=== PATIENT | male | born 1970 | race Caucasian/White ===

== ENCOUNTER → 2016-10-27 | Outpatient (CLI) | payer BC | LOC: GMAJ 16:47 | PROVIDERS: ATTEND Family Medicine | DX: E29.1 Testicular hypofunction (principal); E55.9 Vitamin D deficiency, unspecified ==

== ENCOUNTER → 2018-03-23 | Outpatient (CLI) | payer BC, OTHER | LOC: GMAJS 17:01 | PROVIDERS: ATTEND Physician Assistant | DX: I95.1 Orthostatic hypotension (principal); R42 Dizziness and giddiness; I10 Essential (primary) hypertension; Z12.5 Encounter for screening for malignant neoplasm of prostate ==

== ENCOUNTER → 2018-11-08 | Outpatient (CLI) | payer OTHER | LOC: GMAJ 18:21 | PROVIDERS: ATTEND Family Medicine | DX: E29.1 Testicular hypofunction (principal); E55.9 Vitamin D deficiency, unspecified ==

== ENCOUNTER → 2018-11-30 | Outpatient (CLI) | payer OTHER | LOC: GMAJ 17:21 | PROVIDERS: ATTEND Family Medicine | DX: R94.5 Abnormal results of liver function studies (principal) ==

== ENCOUNTER → 2018-12-15 | Outpatient (CLI) | payer OTHER ==
--- NOTE | 2018-12-15 15:38 | US ---
EXAM DESCRIPTION: Abdomen,Complete: Ultrasound. CLINICAL HISTORY: ELEVATED LFT ABNORMAL LIVER FUNCTION STUDIES COMPARISON: None Available. TECHNIQUE: Transabdominal scannin-dimensional and Doppler modes. FINDINGS: Gallbladder: Normal size with no intraluminal stones or sludge. Wall thickness 2.4 mm normal. No surrounding fluid. Nontender with transducer pressure.. Common bile duct: 5.5 mm normal caliber. Liver: Diffuse increased echogenicity. Long axis of the right lobe 16.7 cm. Hepatopedal flow in the portal vein which is normal caliber. Ducts not dilated. Capsule smooth where seen. No ascites. Pancreas: Normal echogenicity of the included segments with duct not seen.. Abdominal aorta: Normal caliber from the proximal segment to the distal bifurcation. IVC: visualized; normal caliber. Spleen normal echogenicity; long axis measurement is 11.1 cm. Right kidney: 11.4 cm long axis with normal cortical thickness and minimally increased echogenicity. Anechoic cyst protruding from the upper cortex measures 4.6 cm. Lower pole medial cortical cyst measures 2.2 cm. Normal vascularity with no hydronephrosis. No perirenal fluid. Left kidney: 11.1 cm long axis with normal cortical thickness and minimally increased echogenicity. Anechoic well-defined thin-walled cyst protruding from the lower cortex measures 4.1 cm. No hydronephrosis with normal vascularity. No perirenal fluid. IMPRESSION: 1. Bilateral normal-appearing cysts on the kidneys. Normal size with slightly echogenic cortex but no hydronephrosis. 2. Fatty liver mildly enlarged. Normal ducts in vascularity. Smooth capsule with no ascites. 3. Ultrasound of the gallbladder, common bile duct, pancreas, and spleen are unremarkable. Normal caliber of the abdominal aorta and IVC. Electronically signed by: Armani Alvarez MD 12/15/2018 3:35 PM DISTRIBUTION ACCOUNTING CLERK
== END ==
LOC: US 13:53
PROVIDERS: ATTEND Family Medicine
DX: R94.5 Abnormal results of liver function studies (principal); K76.0 Fatty (change of) liver, not elsewhere classified; N28.1 Cyst of kidney, acquired

== ENCOUNTER → 2020-06-19 | Outpatient (CLI) | payer BC | LOC: GMAJ 10:37 | PROVIDERS: ATTEND Family Medicine | DX: Z12.5 Encounter for screening for malignant neoplasm of prostate (principal) ==